=== PATIENT | male | born 1985 | race Native Hawaiian/Other Pacific Islander ===

== ENCOUNTER 2016-12-12 22:10 | Emergency (ER) | payer BC, OTHER ==
[~2016-12-12] VITALS: Ht 175.3 cm; Wt 67.1 kg
[~2016-12-12 22:10] MED LIST: COLC0.6T67 PO
[2016-12-12] MEDS ORDERED: NITROGLYCERIN OINT 1 GM PACKET TP ONE ×3 (22:30→22:51)
[2016-12-12] MEDS ORDERED: ASPIRIN 81 MG TAB.CHEW PO ONE (22:30)
[2016-12-12 22:35] LABS: BASOPHILS % (AUTO) 0.3 % (0.0-2.0); EOSINOPHILS # (AUTO) 0.4 K/uL (0.0-0.7); EOSINOPHILS % (AUTO) 5.1 % (0.0-7.0); HEMATOCRIT 47.4 % (40-50); LYMPHOCYTES # (AUTO) 1.5 K/UL (0.8-4.8); MEAN CORPUSCULAR HEMOGLOBIN 30.7 UUG (27.0-31.0); MEAN CORPUSCULAR HGB CONC 34 g/dL (32.0-37.0); MEAN CORPUSCULAR VOLUME 90.8 FL (82.0-92.0); MONOCYTES # (AUTO) 0.3 K/UL (0.1-1.30); MONOCYTES % (AUTO) 3.8 % (0.0-11.0); NEUTROPHILS # (AUTO) 5.3 K/UL (1.8-8.9); NEUTROPHILS % (AUTO) 70.8 % (38.5-71.5); PLATELET COUNT (AUTO) 195 K/UL (150-450); RED BLOOD CELL COUNT(AUTO) 5.22 MIL/UL (4.7-6.1); WHITE BLOOD COUNT (AUTO) 7.5 K/UL (4.0-11.2)
[2016-12-12 22:49] LABS: CREATININE 1.2 mg/dL (0.6-1.3); POTASSIUM 3.9 mmol/L (3.5-5.1)
[2016-12-12] MEDS ORDERED: ASPIRIN 81 MG TAB.CHEW ONE (22:50)
--- NOTE | 2016-12-12 22:52 | NUR ---
Pt evaluated by MD in room 4B for burning CP; orders carried out; pt concerned about a stroke, MD aware; pt a/o x 4, complains of headache. Cont to monitor.
[2016-12-12 23:00] LABS: BILIRUBIN,DIRECT 0.1 mg/dL (0.0-0.2); BILIRUBIN,TOTAL 0.5 mg/dL (0.2-1.0)
--- NOTE | 2016-12-12 23:15 | NUR ---
Pt conts to c/o 5/10 right sided pressure and dizziness. MD notified, awaiting further orders. Pt resting in position of comfort for self. Family at bedside.
--- NOTE | 2016-12-13 00:57 | NUR ---
Pt resting in position of comfort for self. No complaints at this time. Resp even and unlabored. Family at bedside.
--- NOTE | 2016-12-13 01:21 | NUR ---
Repeat troponin drawn and sent. Pt wanting to leave AMA. notified.
--- NOTE | 2016-12-13 01:54 | NUR ---
Pt stable for discharge per MD. IV dc'd, catheter intact. Drsg applied. No problems noted to site. Pt given ACI. PT verbalized understanding of dc instructions. 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
[2016-12-13 01:59] VITALS: BP 123/60
== END 2016-12-13 02:00 | disposition home or self-care (01) ==
LOC: ER 22:11
DX: R07.89 Other chest pain (principal); M10.9 Gout, unspecified
CPT/HCPCS: 36415 ×2; 71010; 80048; 80076; 83880; 84484 ×2; 85025; 85379; 85730; 93005; 99285; A4663; 70030-TC

== ENCOUNTER 2020-07-24 12:43 | Emergency (ER) | payer BC ==
[~2020-07-24] VITALS: Ht 175.3 cm; Wt 68.0 kg
--- NOTE | 2020-07-24 12:54 | NUR ---
DR CALIXTO AT BEDSIDE FOR EVAL.
--- NOTE | 2020-07-24 13:51 | NUR ---
TEST RESULTS REVIEWED BY DR CALIXTO WITH PATIENT. DISCHARGE INSTRUCTIONS RENDERED BY .
[2020-07-24 13:52] VITALS: BP 149/96
== END 2020-07-24 13:53 | disposition home or self-care (01) ==
LOC: ER 12:47
DX: S60.221A Contusion of right hand, initial encounter (principal); W22.01XA Walked into wall, initial encounter; Y93.89 Activity, other specified; Y92.89 Other specified places as the place of occurrence of the external cause; Y99.8 Other external cause status; M10.9 Gout, unspecified; Z79.899 Other long term (current) drug therapy
CPT/HCPCS: 73110; 73130; A4663

== ENCOUNTER 2020-07-28 18:02 | Emergency (ER) | payer BC ==
[~2020-07-28] VITALS: Ht 175.3 cm; Wt 68.0 kg
--- NOTE | 2020-07-28 18:07 | NUR ---
Dr Valle seen and examined the pt.
[2020-07-28] MEDS ORDERED: KETOROLAC TROMETHAMINE 15 MG INJ IM ONE (18:15)
[2020-07-28] MEDS ORDERED: KETOROLAC TROMETHAMINE 15 MG INJ ONE (18:18)
[2020-07-28] MEDS ORDERED: HYDROCODONE/APAP 10-325 MG TABLET ONE (18:44)
[2020-07-28] MEDS ORDERED: SULFAMETH/TRIMETH 800/160 MG TABLET ONE (18:44)
[2020-07-28 18:45] VITALS: BP 124/78
[2020-07-28] MEDS ORDERED: SULFAMETH/TRIMETH 800/160 MG TABLET PO ONE (18:45)
[2020-07-28] MEDS ORDERED: HYDROCODONE/APAP 10-325 MG TABLET PO ONE (18:45)
--- NOTE | 2020-07-28 18:48 | NUR ---
Patient discharged to home in stable condition. Written and verbal after care instructions given. Patient verbalizes understanding of instructions. Stressed follow up or return to ER for worsening s/s.
== END 2020-07-28 18:48 | disposition home or self-care (01) ==
LOC: ER 18:04
DX: L08.9 Local infection of the skin and subcutaneous tissue, unspecified (principal); S61.431S Puncture wound without foreign body of right hand, sequela; W22.8XXS Striking against or struck by other objects, sequela
CPT/HCPCS: 73140; 96372; 99283; J1885; A4663